=== PATIENT | male | born 1980 | race African-American/Black ===

== ENCOUNTER 2017-07-12 18:55 | Emergency (ER) | payer OTHER ==
[~2017-07-12] VITALS: Ht 167.6 cm; Wt 68.0 kg
[2017-07-12 19:44] LABS: HEMATOCRIT 40.8 % (42.0-52.0); HEMOGLOBIN 13.8 gm/dL (14.0-18.0); MCH 29.7 pg (26.0-34.0); MCHC 33.9 g/dL (28.0-37.0); MCV 87.6 fL (80.0-100.0); RBC 4.65 mil/uL (4.50-6.00); RDW 14.3 % (10.5-14.5); WBC 6.5 thou/uL (4.0-11.0)
[2017-07-12 19:52] LABS: CALCIUM 9.1 mg/dL (8.5-10.1); CREATININE 0.7 mg/dL (0.7-1.3); POTASSIUM 3.8 mmol/L (3.5-5.1)
[2017-07-12 19:57] LABS: ALBUMIN 4.1 g/dL (3.4-5.0); TOTAL BILIRUBIN 1.9 mg/dL (<0.1-1.0); TOTAL PROTEIN 7.6 g/dL (6.4-8.2)
== END 2017-07-12 20:33 | disposition home or self-care (01) ==
LOC: ER 18:55
PROVIDERS: Emergency Medicine
DX: R53.1 Weakness (principal)

== ENCOUNTER 2019-02-12 09:30 | Emergency (ER) | payer BC ==
[~2019-02-12] VITALS: Ht 165.1 cm; Wt 68.0 kg
[2019-02-12 09:58] LABS: ABSOLUTE NEUTROPHILS 4.9 thou/uL (1.4-8.2); BASOPHILS 0.9 % (0.0-2.0); EOSINOPHILS 1.4 % (0.0-3.0); HEMATOCRIT 41.2 % (42.0-52.0); HEMOGLOBIN 13.9 gm/dL (14.0-18.0); LYMPHOCYTES 29.5 % (24.0-44.0); MCH 30.8 pg (26.0-34.0); MCHC 33.8 g/dL (28.0-37.0); MCV 91.1 fL (80.0-100.0); MONOCYTES 6.9 % (1.0-8.0); PLATELET COUNT 334 thou/uL (150-400); POLYS 61.3 % (36.0-66.0); RBC 4.53 mil/uL (4.50-6.00); RDW 13.4 % (10.5-14.5); WBC 8.1 thou/uL (4.0-11.0)
[2019-02-12 10:02] LABS: CALCIUM 9.5 mg/dL (8.5-10.1); CREATININE 0.7 mg/dL (0.7-1.3); POTASSIUM 3.8 mmol/L (3.5-5.1)
[2019-02-12 10:08] LABS: ALBUMIN 4.2 g/dL (3.4-5.0); TOTAL BILIRUBIN 0.6 mg/dL (<0.1-1.0); TOTAL PROTEIN 7.9 g/dL (6.4-8.2)
[2019-02-12 10:31] LABS: URINE BILIRUBIN NEGATIVE (Negative); URINE BLOOD TRACE (Negative); URINE CLARITY CLEAR; URINE COLOR YELLOW; URINE GLUCOSE-RANDOM* NEGATIVE (Negative); URINE KETONES 1+ (Negative); URINE LEUKOCYTES NEGATIVE (Negative); URINE NITRITE NEGATIVE (Negative); URINE PROTEIN (DIPSTICK) 2+ (Negative); URINE SPECIFIC GRAVITY 1.025 (1.005-1.035)
[2019-02-12 10:42] LABS: SQUAMOUS 0-3 Few /LPF (0-3)
[2019-02-12 10:43] LABS: BACTERIA 1-9 Few /HPF (None Seen); CASTS None Seen /LPF (None Seen); CRYSTALS None Seen /LPF (None Seen); MUCUS 0-3 Light strn/LPF (None Seen); URINE RBC 0-2 Rare /HPF (0-2); URINE WBC 0-5 Rare /HPF (0-5)
[2019-02-12] MEDS ORDERED: ZOFRAN ODT4 MG PO (12:03)
[2019-02-12] MEDS ORDERED: ACID CONTROLLER20 MG PO (12:03)
[2019-02-12 12:17] VITALS: BP 115/78
== END 2019-02-12 12:23 | disposition home or self-care (01) ==
LOC: ER 09:30
PROVIDERS: Emergency Medicine Emergency Medical Services
DX: R10.9 Unspecified abdominal pain (principal); R11.2 Nausea with vomiting, unspecified

== ENCOUNTER 2019-04-14 16:47 | Inpatient (IN) | payer BC ==
[~2019-04-14] VITALS: Ht 162.6 cm; Wt 62.1 kg
[~2019-04-14 16:47] MED LIST: ACID CONTROLLER20 MG PO; ZOFRAN ODT4 MG PO
[2019-04-14 16:54] VITALS: BP 131/93
[2019-04-14 17:29] LABS: URINE BILIRUBIN 3+ (Negative); URINE BLOOD TRACE (Negative); URINE CLARITY CLEAR; URINE COLOR YELLOW; URINE GLUCOSE-RANDOM* NEGATIVE (Negative); URINE KETONES 2+ (Negative); URINE LEUKOCYTES-REFLEX NEGATIVE (Negative); URINE NITRITE-REFLEX NEGATIVE (Negative); URINE PROTEIN (DIPSTICK) 3+ (Negative); URINE SPECIFIC GRAVITY >= 1.030 (1.005-1.035)
[2019-04-14 17:31] LABS: ICTOTEST (BILI CONFIRMATORY) Positive (Negative)
[2019-04-14 17:47] LABS: MUCUS >6 Heavy strn/LPF (None Seen); SQUAMOUS 0-3 Few /LPF (0-3)
[2019-04-14 17:48] LABS: BACTERIA-REFLEX None Seen /HPF (None Seen); CRYSTALS None Seen /LPF (None Seen); HYALINE CASTS >10 Many /LPF (None Seen); URINE RBC 0-2 Rare /HPF (0-2); URINE WBC-REFLEX 0-5 Rare /HPF (0-5)
[2019-04-14 18:05] LABS: ABSOLUTE NEUTROPHILS 6.4 thou/uL (1.4-8.2); BASOPHILS 0.5 % (0.0-2.0); EOSINOPHILS 0.4 % (0.0-3.0); HEMATOCRIT 46.4 % (42.0-52.0); HEMOGLOBIN 15.3 gm/dL (14.0-18.0); LYMPHOCYTES 17.1 % (24.0-44.0); MCH 30.7 pg (26.0-34.0); MONOCYTES 9.7 % (1.0-8.0); PLATELET COUNT 271 thou/uL (150-400); POLYS 72.3 % (36.0-66.0); RBC 4.99 mil/uL (4.50-6.00); RDW 14.3 % (10.5-14.5); WBC 8.9 thou/uL (4.0-11.0)
[2019-04-14 18:17] LABS: CALCIUM 10.9 mg/dL (8.5-10.1); CREATININE 1.8 mg/dL (0.7-1.3); POTASSIUM 3.7 mmol/L (3.5-5.1)
[2019-04-14 18:20] LABS: ALBUMIN 5.1 g/dL (3.4-5.0); TOTAL BILIRUBIN 1.3 mg/dL (<0.1-1.0); TOTAL PROTEIN 9.8 g/dL (6.4-8.2)
[2019-04-14 18:55] LABS: BE(vivo) -10.2 mmol/L (-2 to +3); HCO3 13.3 mmol/L (22.0-26.0); PO2 106.6 mmHg (80.0-100.0); pH 7.353 (7.360-7.450); sO2 97.8 % (92.0-98.0)
[2019-04-14 18:56] LABS: PCO2 24.5 mmHg (35.0-45.0)
[2019-04-14 20:02] LABS: PROTIME 10.1 Seconds (9.3-11.4)
[2019-04-14 21:21] VITALS: BP 130/87
[2019-04-14 21:57] VITALS: BP 133/85
[2019-04-15 03:22] LABS: CALCIUM 9.8 mg/dL (8.5-10.1); CREATININE 1.2 mg/dL (0.7-1.3); POTASSIUM 3.3 mmol/L (3.5-5.1)
[2019-04-15 03:24] LABS: MAGNESIUM 2.3 mg/dL (1.8-2.4); PHOSPHORUS 3.3 mg/dL (2.5-4.9)
[2019-04-15 04:37] VITALS: BP 136/88
--- NOTE | 2019-04-15 05:00 | NUR ---
PT ARRIVED UNIT AT ABOUT 2150. PT A/OX4, VITAL SIGNS STABLE. NO COMPLAINTS OF PAIN, NO COMPLAINTS OF NAUSEA OR VOMITING. ADMISSION COMPLETED, PT RESTEED WELL THROUGH THE NIGHT. STARTED ON CIWA PROTOCOL. WILL CONTINUE TO CLOSELY MONITOR.
[2019-04-15 08:25] VITALS: BP 131/90
[2019-04-15 09:51] LABS: AMP/METHAMP Negative (Negative); BARBITURATES Negative (Negative); BENZODIAZEPINES Negative (Negative); COCAINE Negative (Negative); METHADONE Negative (Negative); OPIATES Negative (Negative); PCP Negative (Negative)
[2019-04-15 12:18] VITALS: BP 113/89
--- NOTE | 2019-04-15 12:42 | NUR ---
Assess due to high nutrition screening risk for unintentional wt loss and poor appetite. +Etoh use, admitted with n/v and alcoholic ketoacidosis. Increased LFT and ammonia 38. Pt states wt down 13 lb over past few months. Likely related to etoh use. Lunch tray observed and pt ate 100% and felt appetite was good without further nausea. Has menu to choose alternative food selections. Would like to trial some Ensure-will order. Encouraged healthy meal options for home, avoid skipping meals or replacing food with etoh. On vitamin and thiamine supplementation. Low nutrition risk
--- NOTE | 2019-04-15 14:45 | NUR ---
ASSUMED CARE OF PT AT SHIFT CHANGE. ASSESSMENTS CHARTED. MEDS GIVEN PER JUL. VSS. A&OX4. NO C/O PAIN OR N/V. ANTICIPATING DC ORDERS. GAVE REPORT TO ELYSSA LIVE.
[2019-04-15 15:04] LABS: CALCIUM 9.4 mg/dL (8.5-10.1); CREATININE 0.9 mg/dL (0.7-1.3); POTASSIUM 3.6 mmol/L (3.5-5.1)
[2019-04-15 15:10] LABS: ALBUMIN 3.9 g/dL (3.4-5.0); TOTAL BILIRUBIN 1.3 mg/dL (<0.1-1.0); TOTAL PROTEIN 7.1 g/dL (6.4-8.2)
[2019-04-15 16:37] VITALS: BP 126/96
[2019-04-15 17:04] VITALS: BP 126/96
[2019-04-16 10:10] LABS: HAV IgM AB (ANTI-HAV IgM) Negative (Negative); HEPATITIS B SURFACE AG Negative (Negative); HEPATITIS C VIRUS AB 0.2 (0.0-0.9)
[2019-04-17 13:10] LABS: METHANOL Negative % (0.000-0.010)
[2019-04-17 17:10] LABS: ETHYLENE GLYCOL < 5 mg/dL (None detected)
== END 2019-04-15 17:28 | disposition home or self-care (01) | DRG 683 ==
LOC: ER 16:47 → 2N 20:50 → EROBS 20:50 → 2N 21:42
PROVIDERS: Internal Medicine; Nurse Practitioner Acute Care; Physician Assistant; ADMIT Hospitalist
DX: N17.9 Acute kidney failure, unspecified (principal); K92.0 Hematemesis; E87.2 Acidosis; E87.1 Hypo-osmolality and hyponatremia; E86.0 Dehydration; F10.10 Alcohol abuse, uncomplicated; R74.0 Nonspecific elevation of levels of transaminase and lactic acid dehydrogenase [LDH]
CPT/HCPCS: 10081

== ENCOUNTER 2020-03-08 08:50 | Observation (INO) | payer BC ==
[~2020-03-08] VITALS: Ht 165.1 cm; Wt 68.0 kg
[2020-03-08 09:23] VITALS: BP 136/84
[2020-03-08 10:47] LABS: ABSOLUTE NEUTROPHILS 8.1 thou/uL (1.4-8.2); HEMATOCRIT 41.5 % (42.0-52.0); HEMOGLOBIN 13.5 gm/dL (14.0-18.0); LYMPHOCYTES 9.4 % (24.0-44.0); MCH 31.7 pg (26.0-34.0); MCHC 32.6 g/dL (28.0-37.0); MCV 97.2 fL (80.0-100.0); MONOCYTES 3.8 % (1.0-8.0); PLATELET COUNT 197 thou/uL (150-400); POLYS 85.8 % (36.0-66.0); RBC 4.27 mil/uL (4.50-6.00); RDW 13.8 % (10.5-14.5); WBC 9.5 thou/uL (4.0-11.0)
[2020-03-08 11:22] LABS: CALCIUM 9.1 mg/dL (8.5-10.1); CREATININE 0.6 mg/dL (0.7-1.3)
[2020-03-08 11:23] LABS: POTASSIUM 4.6 mmol/L (3.5-5.1)
[2020-03-08 11:26] LABS: ALBUMIN 4.5 g/dL (3.4-5.0); MAGNESIUM 1.8 mg/dL (1.8-2.4); PHOSPHORUS 3.9 mg/dL (2.5-4.9); TOTAL BILIRUBIN 0.5 mg/dL (0.2-1.0); TOTAL PROTEIN 8.7 g/dL (6.4-8.2)
--- NOTE | 2020-03-08 12:12 | EKG ---
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
[2020-03-08 12:22] LABS: BE(vivo) -11.5 mmol/L (-2 to +3); HCO3 13.3 mmol/L (22.0-26.0); PCO2 VENOUS 27.4 mmHg (41.0-51.0); PO2 VENOUS 50.7 mmHg (35.0-45.0)
[2020-03-08 12:29] LABS: URINE BILIRUBIN NEGATIVE (Negative); URINE BLOOD TRACE (Negative); URINE CLARITY CLEAR; URINE COLOR YELLOW; URINE GLUCOSE-RANDOM* NEGATIVE (Negative); URINE KETONES 3+ (Negative); URINE LEUKOCYTES-REFLEX NEGATIVE (Negative); URINE NITRITE-REFLEX NEGATIVE (Negative); URINE PROTEIN (DIPSTICK) 2+ (Negative); URINE SPECIFIC GRAVITY >= 1.030 (1.005-1.035); URINE UROBILINOGEN 0.2 E.U./dl (0.2-1.0)
[2020-03-08 12:36] LABS: URINE REDUCING SUBSTANCE NEGATIVE
[2020-03-08 12:53] LABS: AMORPHOUS URATES Few /LPF (None Seen); BACTERIA-REFLEX 1-9 Few /HPF (None Seen); CASTS None Seen /LPF (None Seen); SQUAMOUS None Seen /LPF (0-3); URINE RBC None Seen /HPF (0-2); URINE WBC-REFLEX None Seen /HPF (0-5)
[2020-03-08 16:12] LABS: CREATININE 0.4 mg/dL (0.7-1.3); POTASSIUM 3.9 mmol/L (3.5-5.1)
[2020-03-08 16:15] LABS: CALCIUM 6.7 mg/dL (8.5-10.1)
[2020-03-08 21:05] LABS: HEMATOCRIT 33.3 % (42.0-52.0)
[2020-03-08 21:06] LABS: HEMOGLOBIN 11.1 gm/dL (14.0-18.0)
[2020-03-09] MEDS ORDERED: ZOFRAN ODT4 MG PO (12:49)
[2020-03-09] MEDS ORDERED: PROTONIX40 M4 PO (12:49)
[2020-03-09 13:51] VITALS: BP 137/105
[2020-03-09 14:50] VITALS: BP 137/105
[2020-03-09 15:04] VITALS: BP 136/100
== END 2020-03-09 15:04 | disposition home or self-care (01) ==
LOC: ER 08:50 → EROBS 12:37
PROVIDERS: Emergency Medicine; ADMIT Hospitalist; ATTEND Hospitalist
DX: K92.2 Gastrointestinal hemorrhage, unspecified (principal); E87.2 Acidosis; K70.10 Alcoholic hepatitis without ascites; R11.2 Nausea with vomiting, unspecified; F17.200 Nicotine dependence, unspecified, uncomplicated; Z79.899 Other long term (current) drug therapy; Z20.828 Contact with and (suspected) exposure to other viral communicable diseases

== ENCOUNTER 2020-10-07 10:48 | Inpatient (IN) | payer OTHER ==
[~2020-10-07] VITALS: Ht 165.1 cm; Wt 71.2 kg
[~2020-10-07 10:48] MED LIST changes: +PROTONIX40 M4 PO
[2020-10-07 10:52] VITALS: BP 134/95
[2020-10-07 11:16] LABS: ABSOLUTE NEUTROPHILS 5.1 thou/uL (1.4-8.2); BASOPHILS 0.9 % (0.0-2.0); HEMATOCRIT 45.8 % (42.0-52.0); HEMOGLOBIN 15.1 gm/dL (14.0-18.0); MCH 29.8 pg (26.0-34.0); MCV 90.2 fL (80.0-100.0); MONOCYTES 10.6 % (1.0-8.0); PLATELET COUNT 191 thou/uL (150-400); POLYS 61.5 % (36.0-66.0); RBC 5.08 mil/uL (4.50-6.00); RDW 15.4 % (10.5-14.5); WBC 8.3 thou/uL (4.0-11.0)
[2020-10-07 11:23] LABS: ANION GAP 26 mmol/L (7-16); BUN 9 mg/dL (7-18); CALCIUM 10.7 mg/dL (8.5-10.1); CHLORIDE 92 mmol/L (98-107); CO2 14 mmol/L (21-32); CREATININE 1.3 mg/dL (0.7-1.3); GLUCOSE 108 mg/dL (74-106); POTASSIUM 4.3 mmol/L (3.5-5.1); SODIUM 132 mmol/L (136-145)
[2020-10-07 11:34] LABS: ALBUMIN 5.1 g/dL (3.4-5.0); LIPASE 179 U/L (73-393); MAGNESIUM 2.1 mg/dL (1.8-2.4); SGOT 471 U/L (15-37); SGPT 350 U/L (16-63); TOTAL BILIRUBIN 1.3 mg/dL (0.2-1.0); TOTAL PROTEIN 9.8 g/dL (6.4-8.2); TROPONIN-I <0.06 ng/mL (<0.06)
[2020-10-07 12:34] LABS: BE(vivo) -12.4 mmol/L (-2 to +3); HCO3 13.3 mmol/L (22.0-26.0); PCO2 VENOUS 30.4 mmHg (41.0-51.0); PO2 VENOUS 33.7 mmHg (35.0-45.0)
[2020-10-07 15:07] LABS: URINE BLOOD TRACE (Negative); URINE CLARITY CLEAR; URINE COLOR YELLOW; URINE GLUCOSE-RANDOM* NEGATIVE (Negative); URINE KETONES 3+ (Negative); URINE LEUKOCYTES-REFLEX NEGATIVE (Negative); URINE NITRITE-REFLEX NEGATIVE (Negative); URINE PROTEIN (DIPSTICK) 2+ (Negative); URINE UROBILINOGEN 0.2 E.U./dl (0.2-1.0)
[2020-10-07 15:14] LABS: ICTOTEST (BILI CONFIRMATORY) Negative (Negative); URINE BILIRUBIN NEGATIVE (Negative)
[2020-10-07 15:22] LABS: BACTERIA-REFLEX 1-9 Few /HPF (None Seen); CRYSTALS None Seen /LPF (None Seen); HYALINE CASTS 0-3 Few /LPF (None Seen); SQUAMOUS None Seen /LPF (0-3); URINE RBC 1-2 Rare /HPF (NONE SEEN); URINE WBC-REFLEX None Seen /HPF (0-5)
--- NOTE | 2020-10-07 16:02 | EKG ---
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 : 1980 Requested By: Juancarlos Doshi Order Number: [id number] MD: Mingo Dalal Measurements Intervals [place] Rate: 110 P: 65 SC: 148 QRS: 40 QRSD: 89 T: 30 QT: 321 QTc: 435 Interpretive Statements Sinus tachycardia Paired ventricular premature complexes Probable left atrial enlargement Left ventricular hypertrophy J Point elev, probable normal early repol pattern Artifact in lead(s) I,II,III,aVR,aVL,aVF and baseline wander in lead(s) V3 Compared to ECG 03/08/2020 10:40:32 Ventricular premature complex(es) now present Left ventricular hypertrophy now present ST (T wave) deviation now present Electronically Signed On 10-07-2020 16:01:52 CDT by Mingo Dalal [email or web address] <ELECTRONICALLY SIGNED> By: Mingo Dalal MD, [facility] 10/07/20 1601 12 111 Mingo Dalal MD, [facility] /EPI
[2020-10-07 17:07] VITALS: BP 129/88
[2020-10-07 17:31] VITALS: BP 125/77
--- NOTE | 2020-10-07 18:27 | NUR ---
PATIENT ADMIT TO UNIT FROM ER AT 1730. A/O X4. UP AD LIP. DENEIS PAIN. NO N/V. NPO AFTER MIDNIGHT TO HAVE EGD TOMORROW. CIW 0. WILL KEEP MONITOR.
[2020-10-07 20:15] VITALS: BP 124/68
--- NOTE | 2020-10-08 04:00 | NUR ---
Patient making prgress towards outcome goals. Vital signs and rhythm stable. Denies pain. Up adlib without difficulty. NPO after MN .Patient hesitant to have EGD done, he will discuss with GI in am.
[2020-10-08 04:11] VITALS: BP 117/80
[2020-10-08 05:13] LABS: ABSOLUTE NEUTROPHILS 2.5 thou/uL (1.4-8.2); BASOPHILS 0.9 % (0.0-2.0); EOSINOPHILS 1.9 % (0.0-3.0); HEMATOCRIT 33.8 % (42.0-52.0); LYMPHOCYTES 28.4 % (24.0-44.0); MCH 29.6 pg (26.0-34.0); MCHC 32.9 g/dL (28.0-37.0); MCV 89.9 fL (80.0-100.0); MONOCYTES 9.6 % (1.0-8.0); PLATELET COUNT 133 thou/uL (150-400); POLYS 59.2 % (36.0-66.0); RBC 3.76 mil/uL (4.50-6.00); RDW 15.2 % (10.5-14.5); WBC 4.2 thou/uL (4.0-11.0)
[2020-10-08 05:14] LABS: CALCIUM 8.8 mg/dL (8.5-10.1); CREATININE 0.9 mg/dL (0.7-1.3); MAGNESIUM 1.8 mg/dL (1.8-2.4); POTASSIUM 3.7 mmol/L (3.5-5.1)
[2020-10-08 05:55] LABS: HEMOGLOBIN 11.1 gm/dL (14.0-18.0)
[2020-10-08 07:00] VITALS: BP 110/76
[2020-10-08 09:21] LABS: HEMATOCRIT 32.4 % (42.0-52.0)
[2020-10-08] MEDS ORDERED: PROTONIX40 M4 PO (09:51)
[2020-10-08 09:52] VITALS: BP 110/76
--- NOTE | 2020-10-08 10:05 | NUR ---
assumed patient care at 0700. a/o x4. denies pian. no n/v. refused egd. dc to home now.
== END 2020-10-08 11:13 | disposition home or self-care (01) | DRG 378 ==
LOC: ER 10:48 → EROBS 17:22 → 3W 17:23
PROVIDERS: Nurse Practitioner; Physician Assistant; ADMIT Hospitalist; ATTEND Hospitalist
DX: K92.0 Hematemesis (principal); E87.2 Acidosis; K76.0 Fatty (change of) liver, not elsewhere classified; R74.01 Elevation of levels of liver transaminase levels; F17.210 Nicotine dependence, cigarettes, uncomplicated; F10.10 Alcohol abuse, uncomplicated; Z79.899 Other long term (current) drug therapy
CPT/HCPCS: 10879